=== PATIENT | male | born 1965 | race Caucasian/White ===

== ENCOUNTER 2018-12-18 04:35 | Inpatient (IN) ==
--- NOTE | 2018-12-18 07:52 | Internal Med History&Physical ---
<Blaine Fuentes - Last Filed: 12/18/18 16:58> Date of Encounter: 12/18/18 Time of Encounter: 07:48 Internal Medicine - H&P: HPI Chief complaint: Vomiting Admitted From: Intrahospital Transfer ([facility]) Plans for Post Hospital Care: Home History of present illness: Mr. Bustamante is a 53 year old male with a PMH of HTN, chronic NSAID abuse for cervical spinal stenosis, kidney stones, and tobacco dependence who presented complaining of fever, chills, nausea, vomiting, and severe suprapubic abdominal pain since yesterday afternoon. 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 Patient reports associated decreased urine output and bowel movements have been normal. Of note, patient reports taking up to four Advils three times a day for chronic neck pain for many years and as well as Gabapentin and Tizanidine. He started Lisinopril in September for hypertension. At the [facility] ED, patient had an elevated WBC 29.7 with left shift, p otassium 5.7, BUN 44, SrCr 4.77, GFR 13, and Ca level 10.4, UA revealed cloudy appearance, 100 protein, trace leukocyte esterase, and negative nitrites. Urine culture is pending. CT abd/plv revealed nonobstructing left renal calculus and bladder wall thickening which may represent cystitis. He was given 3 L normal saline and Kayexalate prior to transfer to [facility]. Past Med Surg Social Fam HX - Past Medical History Medical history: hypertension, kidney stones (7 during his 20s), other Additional medical history: C6-C7 SPINAL STENOSIS Psychiatric history: anxiety, depression - Past Surgical History Surgical History: no surgical history - Social History Smoking Status: Current every day smoker Smokeless Tobacco Status: No Alcohol use: occasionally (3 beers per week) Drug use: marijuana Current living situation: Home, With Family Activity Level: Independent ambulation - Family History Mother Living Status: Hx Family Medical Disorders: Yes (Nephrectomy) Father Living Status: Cause of : [place] Hx Family Cardiac Disorders: Yes (CAD, HTN) Hx Family Endocrine Disorder: Yes (DM) Sister Hx Family Medical Disorders: Yes (Ureteral reflux, nephrectomy) Grandfather Hx Family Medical Disorders: Yes (Bright's disease) Internal Medicine - H&P: Meds Citalopram [CeleXA] 20 mg PO DAILY 12/18/18 [History] Ergocalciferol (VITAMIN D2) [Vitamin D2] 50,000 unit PO MO 12/18/18 [History] Gabapentin [Neurontin] 300 mg PO TID 12/18/18 [History] Tizanidine HCl 4 mg PO TID PRN 12/18/18 [History] Cefdinir [Omnicef] 300 mg PO BID 7 Days #14 capsule 12/20/18 [Rx] Tamsulosin [Flomax] 0.4 mg PO DAILY #30 capsule 12/20/18 [Rx] Allergy/AdvReac Type Severity Reaction Status Date / Time No Known Allergies Allergy Verified 12/18/18 16:28 All Systems PM: A 10-system review of systems was performed and is negative for pertinent findings except as documented above in the HPI. - Constitutional Constitutional: chills, fever(s), lethargy, no weight gain, no weight loss - EENT Eyes: no blurry vision, no diplopia Nose, mouth and throat: no sinus pain, no sore throat - Cardiovascular Cardiovascular ROS IM: palpitations, no chest pain, no dyspnea, no edema - Respiratory Respiratory: no cough, no dyspnea, no wheezing - Gastrointestinal Gastrointestinal: abdominal pain, bloating, nausea, vomiting, no constipation, no diarrhea, no heartburn - Genitourinary Genitourinary ROS male: difficulty urinating, dysuria, flank pain, nocturia, urinary frequency, urinary urgency - Musculoskeletal Musculoskeletal ROS IM: myalgias, neck pain - Integumentary Integumentary IM: no new lesions, no rash - Neurological Neurological ROS: no dizziness, no numbness, no tingling, no weakness - Psychiatric Psychiatric: no anxiety, no depression - Endocrine Endocrine IM: no polydipsia, no polyphagia, no polyuria - Constitutional Vitals: Temp Pulse Resp BP Pulse Ox 98.4 F 108 18 155/90 97 12/18/18 06:58 12/18/18 06:58 12/18/18 06:58 12/18/18 06:58 12/18/18 06:58 General appearance: Present: A&O X 0, cooperative, A&O X 3, pleasant, no acute distress, answers questions appropriately Exam: awake - Head Head exam: Present: atraumatic, normocephalic - Eye Eye exam: Present: EOMI, conjuntiva pink, sclera anicteric - ENT ENT exam: Present: mucous membranes dry, normal oropharynx - Neck Neck exam general surgery: Present: supple, trachea midline. Absent: tenderness - Respiratory Respiratory exam: Present: CTAB. Absent: accessory muscle use, rales, respiratory distress, rhonchi, wheezes - Cardiovascular Cardiovascular exam: Present: RRR, +S1, +S2, tachycardia. Absent: diastolic murmur, gallop, rubs, systolic murmur - GI/Abdominal GI/Abdominal exam: Present: normal bowel sounds, soft, tenderness (Suprapubic), no peritoneal signs. Absent: distended, guarding - Extremities Exam Extremities exam: Present: warm, radial pulses palpable and symmetrical. Absent: calf tenderness, cyanotic, normal inspection (Left knee joint effusion), pedal edema - Back Exam Back exam: Present: CVA tenderness (R), normal inspection, tenderness - Neurological Exam Neurological exam: Present: CN II-XII intact, oriented X3, no focal deficits. Absent: abnormal gait, facial droop, speech deficit - Skin Skin exam: Present: dry, intact, normal color, warm Internal Med - H&P Results - Labs CBC & Chem 7: 12/18/18 08:40 12/18/18 08:40 - Pulse Oximetry Interpretation Digit-Finger O2 Sat by Pulse Oximetry: 97 (On ambient air) - Assessment and Plan (1) Pyelonephritis Status: Acute Assessment and plan: Patient with elevated WBC 29.7, fever, chills, right sided flank pain, dysuria, and UA revealed cloudy appearance, 100 protein, trace leukocyte esterase, and negative nitrites. Blood cultures pending (collected at [facility]) Urine culture is pending. CT abd/plv revealed nonobstructing left renal calculus and bladder wall thic kening which may represent cystitis. Start Rocephin 2 g IV daily Continue close monitoring (2) Acute kidney injury Status: Acute Assessment and plan: Multifactorial JODI in the setting of NSAID abuse, volume depletion/ vomiting/ h eat exhaustion, and JAY inhibitor use. Serum creatinine 4.77, baseline level 1.08 Patient was given 3 L normal saline Continue IV fluids Monitor strict I&Os Renal ultrasound pending Nephrology consulted (3) Effusion of knee joint, left Status: Acute Assessment and plan: Patient with elevated WBC 29.7 and joint effusion of left knee, acute on chronic. Aspirated 5 mL of bloody synovial fluid, fluid analysis pending. Continue Tylenol prn (4) Hyperkalemia Status: Acute Assessment and plan: Potassium 5.7 --> 4.4 Patient was given Kayexalate Continue monitoring (5) Bladder wall thickening Status: Acute Assessment and plan: CT abd/plv revealed bladder wall thickening which may represent cystitis. Patient has suprapubic tenderness on exam. Continue IV antibiotics. (6) Renal calculus, left Status: Chronic Assessment and plan: CT abd/plv revealed nonobstructing left renal calculus. Patient reports 7 previous kidney stones in the past. Continue monitoring (7) Hypertension Status: Chronic Assessment and plan: Blood pressure lightly elevated. Hold JAY inhibitor due to JODI. Hydralazine ordered prn. Qualifiers: Hypertension type: essential hypertension Qualified Code(s): I10 - Essential (primary) hypertension (8) Cervical spinal stenosis Status: Chronic Assessment and plan: MRI C-spine 11/02/18 revealed moderate spinal canal stenosis at C5-C6 and C6-C7. Minimal spinal canal stenosis at C4-C5. Multilevel neural foraminal narrowing. Tylenol prn (9) Tobacco dependence Status: Chronic Assessment and plan: Tobacco cessation discussed. Nicotine patch ordered. (10) DVT prophylaxis Status: Acute Assessment and plan: EPCDs - Time Spent With Patient Total time spent is greater than 50% in coordination of care (as documented) at patient's floor/unit and/or counseling patient: Procedures: Internal Med - Bursa Procedures Site of procedure: prepatellar bursa (See corresponding procedure note) Local anesthetic used: lidocaine 1% Fluid type: bloody (Sent for lab analysis) Lidocaine added to medication: No Patient tolerated procedure: well, no complications Complications: none Sepsis Reassessment Note - Evaluation Current Stage of Sepsis: sepsis (Leukocytosis, tachycardia, UTI) Reason for ruling out sepsis: Hemodynamically stable Possible Source of Sepsis: genitourinary - Focused Exam Date of Encounter: 12/18/18 Time of Encounter: 08:05 Vital Signs: Vital Signs Temp Pulse Resp BP Pulse Ox 12/18/18 06:58 98.4 F 108 18 155/90 97 Respiratory Exam: Present: CTA bilaterally Cardiovascular Exam: Present: tachycardia Capillary Refill: < 2 seconds Peripheral Pulse Strength: 3+ normal Peripheral Pulse Location: Radial Skin Exam: normal turgor <Susie Duron - Last Filed: 12/21/18 06:06> Date of Encounter: 12/20/18 Internal Medicine - H&P: HPI History of present illness: Mr. Bustamante is a 53 year old male All Systems PM: A 10-system review of systems was performed and is negative for pertinent findings except as documented above in the HPI. - Constitutional Vitals: Temp Pulse Resp BP Pulse Ox 97.8 F 68 18 116/73 96 12/20/18 11:34 12/20/18 11:34 12/20/18 11:34 12/20/18 11:34 12/20/18 11:34 Internal Med - H&P Results - Labs CBC & Chem 7: 12/20/18 07:00 12/20/18 07:00 Labs: Short CBC 12/20/18 Range/Units 07:00 WBC 9.8 D (4.3-11.1) K/mcL Hgb 12.6 L (12.9-16.9) g/dL Hct 38.4 (37.5-50.1) % Plt Count 192 (140-400) K/mcL BMP 12/20/18 07:00 Sodium 139 Potassium 4.0 Chloride 106 Carbon Dioxide 24 BUN 19 Creatinine 1.22 Glucose 91 Calcium 9.1 - Impressions ITS Impressions Retroperitoneum Ultrasound 12/18/18 20:45 IMPRESSION: Unremarkable ultrasound of the kidneys. Debris is noted within the bladder. Please correlate with urinalysis. There is a large postvoid residual. Bladder is otherwise unremarkable in appearance. D/ / 12/19/2018 07:21:19 Sathya Ugalde MD / [facility] Interpreting Provider: Sathya Ugalde MD Knee X-Ray 12/19/18 08:52 IMPRESSION: 1. Mild infrapatellar soft tissue swelling but no acute osseous abnormality involving the left knee. D/ / Roque Bhatia MD / Roque Bhatia MD Interpreting Provider: Roque Bhatia MD - Assessment and Plan (1) Bladder wall thickening Status: Acute (2) Renal calculus, left Status: Chronic (3) DVT prophylaxis Status: Acute (4) Hypertension Status: Chronic Qualifiers: Hypertension type: essential hypertension Qualified Code(s): I10 - Essential (primary) hypertension (5) Tobacco dependence Status: Chronic (6) Pyelonephritis Status: Acute (7) Cervical spinal stenosis Status: Chronic (8) Hyperkalemia Status: Acute (9) Effusion of knee joint, left Status: Acute (10) Acute renal failure (ARF) Status: Acute Qualifiers: Acute renal failure type: unspecified Qualified Code(s): N17.9 - Acute kidney failure, unspecified - Time Spent With Patient Total time spent is greater than 50% in coordination of care (as documented) at patient's floor/unit and/or counseling patient: - Attending Attestation I personally and independently interviewed and examined the patient, and I reviewed the patient's medical records. I am in agreement with the assessment and proposed treatment plan. I discussed my findings and recommendation with the patient and answer his questions. The patient's medical records were edited to accurately reflect this encounter.
[2018-12-18] MEDS ORDERED: Acetaminophen 325 MG TABLET PO PRN (08:25)
[2018-12-18] MEDS ORDERED: Ondansetron 4 MG/2 ML VIAL IVP PRN (08:25)
[2018-12-18] MEDS ORDERED: Naloxone 0.4 MG/ML INJ IVP PRN (08:25)
[2018-12-18 09:23] LABS: INR 1.1; Prothrombin Time 12.5 Seconds (9.4-12.1)
[2018-12-18] MEDS: Cholecalciferol (D-3) 1,000 UNIT TABLET PO SCH (09:27)
[2018-12-18] MEDS: Gabapentin 300 MG CAPSULE PO SCH ×3 (09:27→22:55)
[2018-12-18] MEDS: cefTRIAXone 2,000 MG in Water for inj. (sterile) 20 ML 20 ML IVP SCH (09:28)
[2018-12-18] MEDS: Nicotine 14 MG PATCH.TD24 TD SCH (09:28)
[2018-12-18 09:29] LABS: Basophils # 0.1 K/mcL (0.0-0.2); Basophils % 0.2 %; Hematocrit 44.5 % (37.5-50.1); Hemoglobin 14.6 g/dL (12.9-16.9); Lymphocytes # 1.5 K/mcL (0.6-4.6); Lymphocytes % 6.4 %; Mean Corpuscular HGB Conc 32.8 g/dL (31.6-35.5); Mean Corpuscular Hemoglobin 30.4 pg (28.0-33.3); Mean Corpuscular Volume 92.7 fL (83.0-100.0); Mean Platelet Volume 9.7 fL (9.4-12.4); Monocytes # 1.9 K/mcL (0.0-1.3); Monocytes % 7.9 %; Neutrophils # 20.2 K/mcL (1.6-8.9); Platelet Count 276 K/mcL (140-400); Red Cell Distribution Width 13.8 % (11.5-14.5); Segmented Neutrophils % 84.5 %
[2018-12-18] MEDS: 0.9 % Sodium Chloride 1,000 ML IVC SCH ×2 (09:29→22:55)
[2018-12-18 09:32] LABS: Calcium 9.6 mg/dL (8.6-10.3); Potassium 4.4 mEq/L (3.5-5.1)
[2018-12-18 10:03] LABS: Bilirubin,Urine Small (Negative); Blood,Urine Moderate (Negative); Clarity,Urine Clear (Clear); Color,Urine Yellow (Yellow); Glucose,Urine (UA) Normal (Normal); Ketones,Urine Trace mg/dL (Negative); Leukocyte Esterase,Urine Negative (Negative); Nitrite,Urine Negative (Negative); PH,Urine 5.5 pH Units (5.0-8.0); Protein,Urine 100 mg/dL (Neg-Trace); Specific Gravity,Urine 1.017 (1.010-1.025); Urobilinogen,Urine Normal (Normal)
[2018-12-18 10:05] LABS: Bacteria,Urine None Seen per hpf (None-Few); Squamous Epithelial Cell,Urine Many per lpf (None-Few)
[2018-12-18 10:27] LABS: Estimated Average Glucose 123 mg/dl; Hemoglobin A1C 5.9 %
[2018-12-18] MEDS ORDERED: Tetracaine/Benzocaine/Butamben 1 SPRAY AEROSOL MM PRN (11:57)
--- NOTE | 2018-12-18 12:21 | Nephrology Consult Note ---
Date of Encounter: 12/18/18 Time of Encounter: 09:58 Assessment and Plan (1) Acute kidney injury Current Visit: Yes Status: Inactive Volume depletion, which is severe dehydration plus severe acute kidney injury. I recommend continuing volume expansion, as he has no edema thus far and is tolerating it well. I do not recommend urgent hemodialysis at this time since the IV fluids seem to be helping him clinically. Meanwhile continue to hold nephrotoxic agents such as the NSAIDs he was taking [id number], and the lisinopril for now. He will need strict I's and O's, daily weights, avoidance of nephrotoxic agents in general, and renal dosing. I updated his sister and family friend in detail. Of note there is a strong family history of ESRD and renal cell carcinoma on both sides of his parents. Thank you for consult and the [facility], and we will closely follow with you. (2) Bladder wall thickening Current Visit: Yes Status: Acute We will monitor, but if this worsens he may need to see urology at some point. (3) Effusion of knee joint, left Current Visit: Yes Status: Acute Discussed with the hospitalist, consider arthrocentesis. (4) Hyperkalemia Current Visit: Yes Status: Acute He should be on a renal diet, and with IV fluids, which typically helps correct the hyperkalemia. I recommend medically treating this episode of hyperkalemia, but if this becomes medically refractory, then I would consider dialysis. I suspect that he will respond nicely with IV fluids. (5) Hypertension Current Visit: Yes Status: Chronic Should hold an JAY inhibitor or angiotensin receptor nora presently taking JODI. Qualifiers: Hypertension type: essential hypertension Qualified Code(s): I10 - Essential (primary) hypertension (6) Renal calculus, left Current Visit: Yes Status: Chronic Nonobstructing, which is reassuring. He was advised to drink increased water to produce approximately 2 L of urine output per day, which helps reduce future renal stones. History of Present Illness - Reason for Consult Consult date: 12/18/18 Acute Kidney Injury Requesting physician: Blaine Fuentes - Chief Complaint JODI/Dehydration/Volume depletion - History of Present Illness Patient is a very pleasant 53-year-old male with a past medical history of hypertension, previous renal stones in his 20s, and etc. who presents for severe dehydration/volume depletion. He did not affirm excessive use of NSAIDs, chest pain, palpitations, but did not affirm having some diminished appetite with nausea. Onset was over the last few days; he could not describe any palliative or provocative factors. No other sick contacts in the family. He was accompanied by his sister and family friend. He reported that his urine was originally dark, but this is starting to slowly improve after receiving IV fluids, he reported. He affirms feeling fatigued and generally weak as well. He denied ever having seen any previous nephrologists. Of note however, he said that on both his mother and father's side of the family there is significant renal disease including end-stage renal disease (his maternal grandfather had Brights disease), and renal cell carcinoma. Past Med Surg Social Fam HX - Past Medical History Medical history: hypertension, kidney stones (7 during his 20s), other Additional medical history: C6-C7 SPINAL STENOSIS Psychiatric history: anxiety, depression - Past Surgical History Surgical History: no surgical history - Social History Smoking Status: Current every day smoker Smokeless Tobacco Status: No Alcohol use: occasionally (3 beers per week) Drug use: marijuana - Family History Mother Living Status: Hx Family Medical Disorders: Yes (Nephrectomy) Father Living Status: Cause of : [place] Hx Family Cardiac Disorders: Yes (CAD, HTN) Hx Family Endocrine Disorder: Yes (DM) Sister Hx Family Medical Disorders: Yes (Ureteral reflux, nephrectomy) Grandfather Hx Family Medical Disorders: Yes (Bright's disease) Medications and Allergies Citalopram [CeleXA] 20 mg PO DAILY 12/18/18 [History] Ergocalciferol (VITAMIN D2) [Vitamin D2] 50,000 unit PO MO 12/18/18 [History] Gabapentin [Neurontin] 300 mg PO TID 12/18/18 [History] Ibuprofen [Advil] 800 mg PO BID PRN 12/18/18 [History] Lisinopril [Zestril] 10 mg PO DAILY 12/18/18 [History] Tizanidine HCl 4 mg PO TID PRN 12/18/18 [History] Allergy/AdvReac Type Severity Reaction Status Date / Time No Known Allergies Allergy Verified 12/18/18 16:28 Review of Systems All Systems: reviewed and no additional remarkable complaints except as stated Exam - Vital Signs Vital signs: Initial Vital Signs Temp Pulse Resp BP Pulse Ox 98.4 F 108 18 155/90 97 12/18/18 06:58 12/18/18 06:58 12/18/18 06:58 12/18/18 06:58 12/18/18 06:58 Vital Signs - Last 8 Hours Temp Pulse Resp BP Pulse Ox 12/18/18 11:05 98.1 F 87 20 124/76 95 12/18/18 06:58 98.4 F 108 18 155/90 97 Intake and Output 12/17/18 12/18/18 12/18/18 23:59 07:59 15:59 Other: Weight 90.718 kg Patient Weight 12/18/18 23:59 Weight 90.718 kg - General Appearance General appearance: well-developed, well-nourished EENT: ATNC, PERRL, mucous membranes dry Neck: supple Respiratory: clear Cardiology: no murmurs, no edema, regular rate, regular rhythm, normal S1, normal S2 Gastrointestinal: normoactive bowel sounds, tenderness (Mild suprapubic tend erness to palpation, but no flank pain to palpation) Integumentary: warm and dry Neurologic: no focal deficit, no asterixis, alert and oriented x3 Musculoskeletal: no cyanosis, no clubbing Additional Comments: Left knee joint effusion with ballotable patella Psychiatric: mood/affect appropriate, cooperative Results - Lab Results 12/19/18 06:33 12/19/18 06:33 Most recent lab results 12/18/18 08:40 Calcium 9.6
--- NOTE | 2018-12-18 14:13 | Procedure Note ---
Date of procedure: 12/18/18 Pre-op diagnosis: Left knee effusion Post-op diagnosis: same Procedure: Emla cream was applied for 30 minutes prior to procedure as local anesthetic. Time out was performed, patient was positioned supine with left knee exposed. Inferolateral patella was cleaned using alcohol wipe x2. An 18 gauge needle with 20 cc syringe was inserted into effusion. 5 cc of bloody aspirate was removed. A 4x4 was used to hold pressure to site after needle removed. The site was covered with bandage. The patient had minimal pain and tolerated the procedure well. No complications. All questions and concerns of patient were addressed. Dr. Duron was available throughout entire procedure. Anesthesia: local Surgeon: Usha Corrales Was there an neurosurgical physician assistant present: Yes Cover Inspector: Blaine Fuentes Estimated blood loss (cc): 5 Specimen: 5 cc aspirate Condition: stable
[2018-12-18 16:32] LABS: Source,Synovial Fluid left knee
[2018-12-18 17:29] LABS: Color,Synovial Fluid Red (Straw)
[2018-12-18 17:30] LABS: Appearance,Synovial Fluid Bloody (Clear-Hazy)
[2018-12-19] MEDS: tiZANidine 4 MG TABLET PO PRN ×2 (01:10→20:34)
[2018-12-19 07:07] LABS: Basophils # 0.1 K/mcL (0.0-0.2); Basophils % 0.2 %; Eosinophils # 0.1 K/mcL (0.0-0.6); Eosinophils % 0.3 %; Hematocrit 40.6 % (37.5-50.1); Hemoglobin 13.4 g/dL (12.9-16.9); Immature Granulocytes % 0.4 % (0-4); Lymphocytes # 2.2 K/mcL (0.6-4.6); Mean Corpuscular Hemoglobin 31.2 pg (28.0-33.3); Mean Corpuscular Volume 94.4 fL (83.0-100.0); Mean Platelet Volume 9.6 fL (9.4-12.4); Monocytes # 1.5 K/mcL (0.0-1.3); Monocytes % 7.5 %; Neutrophils # 16.2 K/mcL (1.6-8.9); Platelet Count 221 K/mcL (140-400); Red Cell Distribution Width 13.9 % (11.5-14.5); Segmented Neutrophils % 80.6 %
[2018-12-19 07:28] LABS: Calcium 9.1 mg/dL (8.6-10.3)
[2018-12-19] MEDS: Nicotine 14 MG PATCH.TD24 TD SCH (07:31)
[2018-12-19] MEDS: Gabapentin 300 MG CAPSULE PO SCH ×3 (07:32→20:34)
[2018-12-19] MEDS: cefTRIAXone 2,000 MG in Water for inj. (sterile) 20 ML 20 ML IVP SCH (07:32)
[2018-12-19] MEDS: Cholecalciferol (D-3) 1,000 UNIT TABLET PO SCH (07:32)
[2018-12-19] MEDS ORDERED: Vancomycin 250 MG in 0.9 % Sodium Chloride Mini Bag 100 ML IVPB ONE (09:34)
--- NOTE | 2018-12-19 11:48 | Nephrology Progress Note ---
Date of Encounter: 12/19/18 Time of Encounter: 10:20 - Assessment and Plan (1) Acute kidney injury Status: Inactive Nonoliguric acute kidney injury, much improved. Secondary to overt volume depletion. He responded well to IV fluids. Retroperitoneal ultrasound did not show renal masses or hydronephrosis, but he has significant postvoid residual. This probably led to his suprapubic pain/UTI, and I recommend initiating Flomax with follow-up of bladder imaging and assessment of symptoms. If he does not respond the medications, he may need to see a urologist at some point. Continue to hold nephrotoxic agents such as the NSAIDs he was taking [id number], and the lisinopril for now. He will need strict I's and O's, daily weights, avoidance of nephrotoxic agents in general, and renal dosing. I will signoff at this time, and recommend outpt Nephro follow up. Please feel free to call or page me with any Renal questions. Thank you (2) Bladder wall thickening Status: Acute (3) Effusion of knee joint, left Status: Acute (4) Hyperkalemia Status: Acute (5) Hypertension Status: Chronic Qualifiers: Hypertension type: essential hypertension Qualified Code(s): I10 - Essential (primary) hypertension (6) Renal calculus, left Status: Chronic Subjective Principal diagnosis: JODI Interval history: Patient was seen and examined. He did not affirm having nausea, vomiting, and reported feeling less swelling of his left knee. He said that the procedure yesterday on the left need to drain the fluid was somewhat painful. Today, he reported feeling overall better. He voiced having a good appetite and was able to have urination freely without any problems. He said he would like to follow up with me in the clinic. Objective - Vital Signs Vital signs: Vital Signs Temp Pulse Resp BP Pulse Ox 12/19/18 11:21 98.3 F 78 16 124/77 96 12/19/18 07:02 98.4 F 79 18 118/62 95 12/19/18 04:05 97.8 F 71 16 113/70 98 12/18/18 23:41 98.5 F 74 16 132/80 98 12/18/18 19:28 98.3 F 82 16 127/70 96 12/18/18 15:15 98.0 F 84 16 130/77 96 Intake and Output 12/18/18 12/19/18 12/19/18 23:59 07:59 15:59 Intake Total 1999 / 2140 1000 / 1020 20 / 1020 Output Total 1050 / 1750 600 / 1000 400 / 1000 Balance 950 / 390 400 / 20 -380 / 20 Intake: IV Fluids 1000 / 1020 0.9 % Sodium Chloride 1,000 ML 1000 / 1000 @ 100 mls/hr IVC .Q10H JELANI Rx#: [id number] Rocephin 2,000 MG In Water for inj. (sterile) 20 ML @ 600 mls/ hr IVP Q24H JELANI Rx#:[id number] Oral 1000 / 1120 1000 / 1000 Output: Urine 1050 / 1750 600 / 1000 400 / 1000 Other: Meal Dinner Percent of Meal Consumed 75% # Voids 1 # Bowel Movements 1 Weight 91.1 kg Patient Weight 12/19/18 23:59 Weight 91.1 kg - General Appearance Exam: General appearance: well-developed, well-nourished EENT: ATNC, PERRL, mucous membranes moist Neck: supple Respiratory: clear Cardiology: no murmurs, no edema, regular rate, regular rhythm, normal S1, no rmal S2 Gastrointestinal: normoactive bowel sounds, tenderness (Mild suprapubic tenderness to palpation, but no flank pain to palpation) Integumentary: warm and dry Neurologic: no focal deficit, no asterixis, alert and oriented x3 Musculoskeletal: no cyanosis, no clubbing Additional Comments: Left knee joint effusion was much smaller Psychiatric: mood/affect appropriate, cooperative - Lab 12/20/18 07:00 12/20/18 07:00 Most recent lab results 12/19/18 06:33 Calcium 9.1 - VTE Documentation of Mechanical Device: Intermittent pneumatic compression device Consult Discharge Plan - Plan Instructions: Acute Kidney Injury (DC), Urinary Tract Infection in Men (DC), Chronic Hypertension (DC) Additional Instructions: Complete a course of Omnicef for complicated UTI follow up with Nephrology with BMP in 1 week Follow up with Urology for probable BPH Follow with orthopedics for L knee bursitis JAY-i and NSAIDS on hold due to profound JODI Referrals: Perfecto Shoemaker DO [Partnered Physician] - 01/05/19 11:30 am (Please follow up as schedule...) Perfecto Thayer [Partnered Physician] - Ad Candelario MD [Partnered Physician] - (Called and left message with patient name and birthday) NONE,PCP [Primary Care Provider] - Prescriptions: Tamsulosin [Flomax] 0.4 mg PO DAILY #30 capsule Cefdinir [Omnicef] 300 mg PO BID 7 Days #14 capsule
--- NOTE | 2018-12-19 13:40 | Orthopedic Consult Note ---
Date of Encounter: 12/19/18 Time of Encounter: 13:40 Assessment and Plan (1) Pes anserinus bursitis of left knee Current Visit: Yes Status: Acute The diagnosis and treatment recommendations were discussed with patient and aspiration results were reviewed. He has no signs of an intra-articular infection. It does appear aspiration was likely in the area of the bursa. We will continue to follow the aspiration results but no plans for surgical treatme nt. Continue with medical management per the primary team. Follow-up as needed. 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 Further workup showed pyelonephritis and acute kidney injury and he was transferred here. He also complained of some anteromedial swelling of the left knee. Denies any pain with short arc range of motion or passive motion of the knee. He has had this before when he is been kneeling down on the knee for a significant amount of time. Area of swelling was aspirated yesterday although it is unclear exactly what was aspirated, based on the area of the wound it does appear this was likely around the pes bursa. Past Med Surg Social Fam HX - Past Medical History Medical history: hypertension, kidney stones (7 during his 20s), other Additional medical history: C6-C7 SPINAL STENOSIS Psychiatric history: anxiety, depression - Past Surgical History Surgical History: no surgical history - Social History Smoking Status: Current every day smoker Smokeless Tobacco Status: No Alcohol use: occasionally (3 beers per week) Drug use: marijuana - Family History Mother Living Status: Hx Family Medical Disorders: Yes (Nephrectomy) Father Living Status: Cause of : [place] Hx Family Cardiac Disorders: Yes (CAD, HTN) Hx Family Endocrine Disorder: Yes (DM) Sister Hx Family Medical Disorders: Yes (Ureteral reflux, nephrectomy) Grandfather Hx Family Medical Disorders: Yes (Bright's disease) Medications and Allergies Citalopram [CeleXA] 20 mg PO DAILY 12/18/18 [History] Ergocalciferol (VITAMIN D2) [Vitamin D2] 50,000 unit PO MO 12/18/18 [History] Gabapentin [Neurontin] 300 mg PO TID 12/18/18 [History] Ibuprofen [Advil] 800 mg PO BID PRN 12/18/18 [History] Lisinopril [Zestril] 10 mg PO DAILY 12/18/18 [History] Tizanidine HCl 4 mg PO TID PRN 12/18/18 [History] 3 Allergy/AdvReac Type Severity Reaction Status Date / Time No Known Allergies Allergy Verified 12/18/18 16:28 All Systems Reviewed: The remainder of the systems were reviewed and are negative except as noted in the HPI Physical Exam - Constitutional Vitals: Temp Pulse Resp BP Pulse Ox 98.3 F 78 16 124/77 96 12/19/18 11:21 12/19/18 11:21 12/19/18 11:21 12/19/18 11:21 12/19/18 11:21 Exam: Consult Exam: Constitutional -Vitals reviewed -The patient is well developed and well nourished. -Mood is pleasant. -The patient is well groomed. Psychiatric -The patient is fully alert and oriented x 3. Respiratory: -Respiratory effort normal Left upper extremity: -No deformities. The overlying skin is intact. No obvious signs of acute trauma. -No tenderness to palpation throughout. -No significant pain with passive motion of the shoulder, elbow, wrist, and fingers within the limits of the bed. -Able to make an "OK" sign, cross the index and long fingers, and extend the thumb. -Sensation grossly intact to light touch throughout the median, radial, and ulnar distributions. -Radial pulse is present; Fingers have good capillary refill. Right upper extremity: -No deformities. The overlying skin is intact. No obvious signs of acute trauma. -No tenderness to palpation throughout. -No significant pain with passive motion of the shoulder, elbow, wrist, and fingers within the limits of the bed. -Able to make an "OK" sign, cross the index and long fingers, and extend the thumb. -Sensation grossly intact to light touch throughout the median, radial, and ulnar distributions. -Radial pulse is present; Fingers have good capillary refill. Left lower extremity: -No deformities. The overlying skin is intact. No obvious signs of acute trauma. -No tenderness to palpation throughout. Previous aspiration site over area of pes bursa. No surrounding erythema or significant swelling currently. -No pain with passive motion of the hip, knee, ankle, and toes within the limits of the bed. -No pain with axial loading of the thigh. -Able to dorsiflex and plantarflex the ankle and toes. -Sensation is grossly intact to light touch throughout the sural, saphenous, superficial peroneal, and deep peroneal distributions. -Toes have good capillary refill. Right lower extremity: -No deformities. The overlying skin is intact. No obvious signs of acute trauma. -No tenderness to palpation throughout. -No pain with passive motion of the hip, knee, ankle, and toes within the limits of the bed. -No pain with axial loading of the thigh. -Able to dorsiflex and plantarflex the ankle and toes. -Sensation is grossly intact to light touch throughout the sural, saphenous, superficial peroneal, and deep peroneal distributions. -Toes have good capillary refill. Results - Labs Result Diagrams: 12/19/18 06:33 12/19/18 06:33 Labs: Abnormal lab results WBC 20.1 K/mcL (4.3-11.1) H 12/19/18 06:33 16.2 K/mcL (1.6-8.9) H 12/19/18 06:33 1.5 K/mcL (0.0-1.3) H 12/19/18 06:33 ESR 38 mm/hr (0-10) H 12/19/18 06:33 PT 12.5 Seconds (9.4-12.1) H 12/18/18 08:40 BUN 30 mg/dL (6-20) H 12/19/18 06:33 1.68 mg/dL (0.70-1.30) H 12/19/18 06:33 Est GFR ( Amer) 52 (> 60) L 12/19/18 06:33 Est GFR (Non-Af Amer) 43 (> 60) L 12/19/18 06:33 Glucose 119 mg/dL (70-105) H 12/19/18 06:33 5.9 % (-5.6) H 12/18/18 08:40 311 (280-300) H 12/18/18 08:40 125 mg/L (Less than 10) H 12/19/18 06:33 100 mg/dL (Neg-Trace) H 12/18/18 09:35 Trace mg/dL (Negative) H 12/18/18 09:35 Moderate (Negative) H 12/18/18 09:35 Small (Negative) H 12/18/18 09:35 3-5 per hpf (0-3) H 12/18/18 09:35 3-5 per hpf (0-3) H 12/18/18 09:35 Ur Squamous Epith Cells Many per lpf (None-Few) H 12/18/18 09:35 Synovial Appearance Bloody (Clear-Hazy) A 12/18/18 14:00 Synovial RBC 1.152 M/mcl (0.000-0.002) H 12/18/18 14:00 Synovial Tot Nuc Cell 1405 TNC/mcL (0-200) H 12/18/18 14:00 H & H 12/19/18 Range/Units 06:33 Hgb 13.4 (12.9-16.9) g/dL Hct 40.6 (37.5-50.1) % All other labs normal. - Diagnostic results Knee x-ray: report reviewed, image reviewed (No fracture, dislocation or significant effusion. Mild DJD) Consult Discharge Plan - Plan Referrals: NONE,PCP [Primary Care Provider] -
--- NOTE | 2018-12-19 14:35 | Internal Med Progress Note ---
Hospitalist Progress Note - Encounter Date of Encounter: 12/19/18 Time of Encounter: 08:00 - Subjective Interval History: Patient was seen and examined at bedside. Reports that he is to take one bottle of ibuprofen every 3 days for his cervical neck pain. has knee pain post knee tap performed yesterday. reports that he is a yancey and is on his knees without knee support. reports that he feels much better since admission. all questions answered. denies fever, chills, N/v/D. - Exam Vitals: Temp Pulse Resp BP Pulse Ox 98.3 F 78 16 124/77 96 12/19/18 11:21 12/19/18 11:21 12/19/18 11:12/19/18 11:12/19/18 11:21 Exam: General: Patient is alert, oriented, no acute distress, Head: atraumatic, normocephalic, Eye: normal appearance, PERRL, no scleral icterus, no conjunctival injection ENT: mucous membranes moist, normal external ear exam Neck: normal inspection, trachea midline, full ROM, no carotid bruits Chest: normal inspection, symmetric chest rise Respiratory: Good respiratory effort. Bilateral breath sounds are clear without wheezing, crackles, or rhonchi. Cardiovascular: Regular rate and rhythm. s1 and s2 No clicks, rubs, gallops, or murmors. Abdomen: Bowel sounds present normoactive x-4 quadrants. Abdomen is soft, nondistended. no Epigastric tenderness. No guarding or rebound. No organomegaly noted, no CVA tenderness musculoskeletal: Swelling of the left knee, range of motion is reduced secondary to pain, no erythema or warmth Skin: warm, dry, intact. Neuro: Alert and oriented x4. No focal deficit Psych: Patient's affect is normal - Assessment and Plan (1) Acute renal failure (ARF) Current Visit: Yes Status: Acute Assessment and Plan: Most likely secondary to volume depletion from severe dehydration along with excessive NSAID use, also had large postvoid residual on renal ultrasound Continue to hold nephrotoxic medications Strict intake and output, daily weights, avoidance of nephrotoxic agents Nephrology recommendations appreciated. (2) Pyelonephritis Current Visit: Yes Status: Acute Assessment and Plan: Patient with elevated WBC 29.7, fever, chills, right sided flank pain, dysuria, and UA revealed cloudy appearance, 100 protein, trace leukocyte esterase, and n egative nitrites. Blood cultures pending (collected at [facility]) Urine culture is pending. CT abd/plv revealed nonobstructing left renal calculus and bladder wall thickening which may represent cystitis. Start Rocephin 2 g IV daily Continue close monitoring (3) Bladder wall thickening Current Visit: Yes Status: Acute Assessment and Plan: CT abd/plv revealed bladder wall thickening which may represent cystitis. Patient has suprapubic tenderness on exam. Continue IV antibiotics. (4) Effusion of knee joint, left Current Visit: Yes Status: Acute Assessment and Plan: Bursitis as he worked on his knees without any support rule out septic arthritis Patient has leukocytosis, with left knee swelling/effusion Aspirated 5 mL of bloody synovial fluid, fluid analysis pending. Started on vancomycin and ceftriaxone ESR, CRP, left knee x-ray Orthopedic was consulted will follow recommendations. Continue Tylenol prn (5) Renal calculus, left Current Visit: Yes Status: Chronic Assessment and Plan: CT abd/plv revealed nonobstructing left renal calculus on 12/18 Patient reports 7 previous kidney stones in the past. Continue monitoring Renal ultrasound on 12/19 is unremarkable for hydronephrosis. (6) Hypertension Current Visit: Yes Status: Chronic Assessment and Plan: Blood pressure lightly elevated. Hold JAY inhibitor due to JODI. Hydralazine ordered prn. (7) Tobacco dependence Current Visit: Yes Status: Chronic Assessment and Plan: Tobacco cessation discussed. Nicotine patch ordered. (8) Cervical spinal stenosis Current Visit: No Status: Chronic Assessment and Plan: MRI C-spine 11/02/18 revealed moderate spinal canal stenosis at C5-C6 and C6-C7. Minimal spinal canal stenosis at C4-C5. Multilevel neural foraminal narrowing. Tylenol prn Outpatient follow-up with work station support specialist (9) Hyperkalemia Current Visit: Yes Status: Acute Assessment and Plan: Most likely secondary to acute renal failureresolved Potassium 5.7 --> 4.0 Patient was given Kayexalate Continue monitoring (10) DVT prophylaxis Current Visit: Yes Status: Acute Assessment and Plan: EPCDs - Time Spent with Patient Total time spent is greater than 50% in coordination of care (as documented) at patient's floor/unit and/or counseling patient: Internal Medicine: Result - Labs CBC & Chem 7: 12/19/18 06:33 12/19/18 06:33 Labs: Short CBC 12/19/18 Range/Units 06:33 WBC 20.1 H (4.3-11.1) K/mcL Hgb 13.4 (12.9-16.9) g/dL Hct 40.6 (37.5-50.1) % Plt Count 221 (140-400) K/mcL Neutrophils # 16.2 H (1.6-8.9) K/mcL BMP 12/19/18 06:33 Sodium 137 Potassium 4.0 Chloride 106 Carbon Dioxide 23 BUN 30 H Creatinine 1.68 H Glucose 119 H Calcium 9.1 - ABG Interpretation ABG results: PT/INR, D-dimer PT 12.5 Seconds (9.4-12.1) H 12/18/18 08:40 - Impressions Impressions Retroperitoneum Ultrasound 12/18/18 20:45 IMPRESSION: Unremarkable ultrasound of the kidneys. Debris is noted within the bladder. Please correlate with urinalysis. There is a large postvoid residual. Bladder is otherwise unremarkable in appearance. D/ / 12/19/2018 07:21:19 Sathya Ugalde MD / [facility] Interpreting Provider: Sathya Ugalde MD Knee X-Ray 12/19/18 08:52 IMPRESSION: 1. Mild infrapatellar soft tissue swelling but no acute osseous abnormality involving the left knee. D/ / Roque Bhatia MD / Roque Bhatia MD Interpreting Provider: Roque Bhatia MD - VTE Documentation of Mechanical Device: Intermittent pneumatic compression device Consult Discharge Plan - Plan Referrals: NONE,PCP [Primary Care Provider] - (1) Acute renal failure (ARF) Qualifiers: Acute renal failure type: unspecified Qualified Code(s): N17.9 - Acute kidney failure, unspecified (6) Hypertension Qualifiers: Hypertension type: essential hypertension Qualified Code(s): I10 - Essential (primary) hypertension
[2018-12-20] MEDS: Nicotine 14 MG PATCH.TD24 TD SCH (07:28)
[2018-12-20] MEDS: Gabapentin 300 MG CAPSULE PO SCH ×2 (07:28→15:08)
[2018-12-20] MEDS: Cholecalciferol (D-3) 1,000 UNIT TABLET PO SCH (07:28)
[2018-12-20] MEDS: tiZANidine 4 MG TABLET PO PRN (07:28)
[2018-12-20] MEDS: cefTRIAXone 2,000 MG in Water for inj. (sterile) 20 ML 20 ML IVP SCH (07:29)
[2018-12-20 07:52] LABS: Hematocrit 38.4 % (37.5-50.1); Hemoglobin 12.6 g/dL (12.9-16.9); Mean Corpuscular HGB Conc 32.8 g/dL (31.6-35.5); Mean Corpuscular Hemoglobin 30.8 pg (28.0-33.3); Mean Corpuscular Volume 93.9 fL (83.0-100.0); Mean Platelet Volume 9.8 fL (9.4-12.4); Platelet Count 192 K/mcL (140-400); Red Blood Count 4.09 M/mcL (4.19-5.50); Red Cell Distribution Width 13.4 % (11.5-14.5)
[2018-12-20 08:08] LABS: BUN/Creatinine Ratio 16 (6-26); Blood Urea Nitrogen 19 mg/dL (6-20); Calcium 9.1 mg/dL (8.6-10.3); Carbon Dioxide 24 mEq/L (23-29); Chloride 106 mEq/L (98-107); Glucose 91 mg/dL (70-105); Osmolality,Calculated 290 (280-300); Sodium 139 mEq/L (136-145); eGFR For Non-African Americans > 60 (> 60)
[2018-12-20 11:37] VITALS: BP 116/73
--- NOTE | 2018-12-20 14:53 | Discharge Summary ---
- NOTES TO OUTPATIENT PROVIDER Notes to Outpatient Provider: BMP in 1 week and follow with PCP/nephrology Orders not resulted at time of discharge: Pending orders 12/18/18 14:00 Culture,Body Fluid [RM] Routine Date of Encounter: 12/20/18 Time of Encounter: 13:30 - Discharge Diagnosis (1) Bladder wall thickening Priority: Secondary Status: Acute (2) Renal calculus, left Priority: Secondary Status: Chronic (3) DVT prophylaxis Priority: Secondary Status: Acute (4) Hypertension Priority: Secondary Status: Chronic Qualifiers: Hypertension type: essential hypertension Qualified Code(s): I10 - Essential (primary) hypertension (5) Tobacco dependence Priority: Secondary Status: Chronic (6) Pyelonephritis Priority: Secondary Status: Acute (7) Cervical spinal stenosis Priority: Secondary Status: Chronic (8) Hyperkalemia Priority: Secondary Status: Acute (9) Effusion of knee joint, left Priority: Secondary Status: Acute (10) Acute renal failure (ARF) Priority: Primary Status: Acute Qualifiers: Acute renal failure type: unspecified Qualified Code(s): N17.9 - Acute kidney failure, unspecified Hospital course: Mr. Bustamante is a 53 year old male with history of cervical spinal stenosis, hypertension, who was admitted for JODI with complicated UTI. Had significant post-void residual on US retroperitoneum as well as leukocytosis and UA +ve for LE. Both urine and blood cultures were however negative and he clinically improved on IV Rocephin. Cr also downtrended on IVF and initiation of flomax. Managed in consultation with Nephrology and he will be discharged with 7 additional days of Omnicef, flomax, and both Nephro/Urology follow up as an outpatient. Pt is to repeat BMP in 1 week prior to the appointment. Both JAY inhibitor and NSAIDs will be on hold. OF note, he was also diagnosed with L knee bursitis which was aspirated. No signs of intra-articular infection per orthopedics and will be discharged with orthopedic follow up outpatient if symptoms worsen. Discharge discussed with: patient, nurse, case management, research consultant - Time Spent with Patient Total time spent providing and/or coordinating discharge services: 32 mins - Discharge Medications Prescriptions: New Tamsulosin [Flomax] 0.4 mg PO DAILY #30 capsule Cefdinir [Omnicef] 300 mg PO BID 7 Days #14 capsule Continued Gabapentin [Neurontin] 300 mg PO TID Ergocalciferol (VITAMIN D2) [Vitamin D2] 50,000 unit PO MO Tizanidine HCl 4 mg PO TID PRN PRN Reason: Muscle Spasm Citalopram [CeleXA] 20 mg PO DAILY Discontinued Ibuprofen [Advil] 800 mg PO BID PRN PRN Reason: Pain Lisinopril [Zestril] 10 mg PO DAILY Home Medications: Citalopram [CeleXA] 20 mg PO DAILY 12/18/18 [History] Ergocalciferol (VITAMIN D2) [Vitamin D2] 50,000 unit PO MO 12/18/18 [History] Gabapentin [Neurontin] 300 mg PO TID 12/18/18 [History] Tizanidine HCl 4 mg PO TID PRN 12/18/18 [History] Cefdinir [Omnicef] 300 mg PO BID 7 Days #14 capsule 12/20/18 [Rx] Tamsulosin [Flomax] 0.4 mg PO DAILY #30 capsule 12/20/18 [Rx] Allergies/Adverse Reactions: Allergy/AdvReac Type Severity Reaction Status Date / Time No Known Allergies Allergy Verified 12/18/18 16:28 Date of admission: 12/18/18 16:07 Primary care physician: PCP NONE Consults: 12/18/18 08:48 Consult to Nephrology [CONS] Routine Consulting Provider: [facility]/FELISA/MADHU Reason for Consult: Multifactorial JODI, volume depletion/vomiting, NSAID abuse, ACEI use, pyelonephritis Time Notified: 08:50 Call Completed: Yes 12/19/18 07:42 Consult to Orthopedic Surgery [CONS] Routine Consulting Provider: [facility] Reason for Consult: left knee effusion was tapped and analysis 1405 nuc cells Call Completed: Yes - Constitutional Vitals: Temp Pulse Resp BP Pulse Ox 97.8 F 68 18 116/73 96 12/20/18 11:34 12/20/18 11:34 12/20/18 11:34 12/20/18 11:34 12/20/18 11:34 General appearance: Present: A&O X 0, cooperative, A&O X 3, pleasant, no acute distress, answers questions appropriately Exam: General: Patient is alert, oriented, no acute distress, Respiratory: Good respiratory effort. Bilateral breath sounds are clear without wheezing, crackles, or rhonchi. Cardiovascular: Regular rate and rhythm. s1 and s2 No clicks, rubs, gallops, or murmors. Abdomen: soft, non-tender Musculoskeletal: L knee dressing c/d/i. No warmth or effusion noted. Full ROM without discomfort Skin: warm, dry, intact. Neuro: Alert and oriented x4. No focal deficit - Patient Status Disposition: Home, Self-Care Condition: Fair Functional capacity at discharge: independent ambulation Overall status at discharge: patient is progressing back to baseline - Ambulatory Orders Ambulatory Orders: Basic Metabolic Panel [CHEM] Time Frame: 1 Week, Facility: [facility], Location: Lab - Discharge Instructions Instructions: Acute Kidney Injury (DC), Urinary Tract Infection in Men (DC), Chronic Hypertension (DC) Follow Up With: Perfecto Shoemaker DO [Partnered Physician] - 01/05/19 11:30 am (Please follow up as schedule...) NONE,PCP [Primary Care Provider] - Perfecto Thayer [Partnered Physician] - Additional Instructions: Complete a course of Omnicef for complicated UTI follow up with Nephrology with BMP in 1 week Follow up with Urology for probable BPH Follow with orthopedics for L knee bursitis JAY-i and NSAIDS on hold due to profound JODI - Diet and Activity Activity: resume usual activities as tolerated Diet: regular diet - VTE Documentation of Mechanical Device: Intermittent pneumatic compression device
== END 2018-12-20 16:12 | disposition home or self-care (01) | DRG 463 ==
LOC: 2ANU → SUATTDRO 16:07
PROVIDERS: ADMIT Internal Medicine; ATTEND Internal Medicine